=== PATIENT | male | born 1965 | race Caucasian/White ===

== ENCOUNTER → 2017-01-10 | Outpatient (CLI) | payer OTHER ==
[~2017-01-10] VITALS: Ht 185.4 cm; Wt 117.9 kg
[~2017-01-10] MED LIST: HYDROCODONE-APA1 TA1 PO; LYRICA 50 MG50 MG PO; LYRICA150 MG PO; MOBIC7.5 MG PO; NEURONTIN 300300 M1 PO; RAMIPRIL10 MG PO; SKELAXIN 800 M800 M1 PO; ZYRTEC10 M5 PO
--- NOTE | ~2017-01-10 | P ---
[facility] [place] [address] PROCEDURE REPORT Name: BRO BARTON [id number] Admission: 01/10/17 Attend Phys: Selwyn Singh DO Discharge: Date of : 65 Report #: [id number] THIS REPORT FOR: //name// CC: Darrel Sharma DATE OF SERVICE: 01/10/2017 DESCRIPTION OF PROCEDURE: Cervical epidural steroid injection under fluoroscopic guidance. This is the first procedure of the second series that the patient is undergoing. After obtaining written consent, the patient was taken back to the fluoroscopy suite and placed in a prone position with separate pillows under chest and forehead to decrease cervical lordosis. The skin overlying the cervical area was prepped and draped in an aseptic fashion. The C7-T1 vertebral interspace was identified by AP fluoroscopy. The skin and subcutaneous tissue overlying the target site of injection was anesthetized using 3 mL of 1% lidocaine. A 20-gauge 3-1/2-inch Tuohy needle was advanced under fluoroscopic guidance toward the epidural space using a midline approach. The epidural space was identified using a loss of resistance to air technique. After negative aspiration for heme or cerebrospinal fluid, a total of 1 mL of Omnipaque was injected. A cervical epidurogram was confirmed using AP and oblique fluoroscopy. After negative aspiration for heme or cerebrospinal fluid, 5 mL of a solution containing 2 mL 40 mg per mL, 80 mg total triamcinolone, 3 mL lidocaine 1% was injected in increments. Contrast spread was noted from posterior epidural space. The needle was then retracted approximately [facility] and the needle track was flushed with 1 mL of 1% lidocaine. There were no apparent new sensory deficits in the upper extremities present following the procedure. A sterile bandage was placed over the injection site. The heart rate, pulse oximetry and blood pressure were continuously monitored after the procedure. There were no apparent complications. The patient tolerated the procedure well and was carefully escorted in the recovery room in stable condition. After meeting discharge criteria, the patient was discharged home. By: [id number] Selwyn Singh DO /nt
--- NOTE | ~2017-01-10 | HPC ---
[facility] [address] [place] [address] PAIN MANAGEMENT CONSULTATION Name: BRO BARTON Josefina Room #: REG CLI [facility].#: [id number] Admission: 01/10/17 Attend Phys: Selwyn Singh DO Discharge: Date of : 65 Report #: [id number] THIS REPORT FOR: //name// CC: Darrel Sharma DATE OF SERVICE: 01/10/2017 REFERRING PHYSICIAN: Aric Mendoza MD. CHIEF COMPLAINT: Neck pain, right upper extremity pain. HISTORY OF PRESENT ILLNESS: As you know, the patient is a 51-year-old male, returning today in followup visit with recurrent neck pain, right upper extremity pain with paresthesias. The patient states he was doing very well when he had acute exacerbation of symptoms, denies injury or trauma. He is now placing pain score at 8/10, states his pain is sharp and sore in sensation, exacerbated with sitting, using his right arm, improves with medications, relaxation. He has returned today in followup visit to undergo cervical epidural injection under fluoroscopic guidance and discuss medical changes as well as possible surgical options. The patient again reports no injury or trauma that led to recurrence of symptoms. ALLERGIES: No known drug allergies. CURRENT MEDICATIONS: Lyrica 150 mg twice a day, meloxicam 7.5 mg once a day, Zyrtec 10 mg per day, ramipril 10 mg per day, Skelaxin 800 mg 3 times a day. SOCIAL HISTORY: The patient denies tobacco, IV or illicit drug use. Admits to approximately 4 alcoholic beverages per week. He is employed, working, not receiving workmen's compensation, unaccompanied today. IMAGING: No new imaging available. PHYSICAL EXAMINATION: VITAL SIGNS: Blood pressure 142/88, pulse 80, respiratory rate 16, unlabored. The patient is 98% on room air, height 6 feet 1 inches tall, weight 260 pounds, BMI calculated 34.3. GENERAL: Well-developed, well-nourished, well-hydrated exogenously obese 51-year-old male appearing stated age, placing current pain score 8/10. HEENT: Normocephalic, atraumatic. Pupils equal, round, reactive to light. EXTREMITIES: Show no clubbing, no cyanosis, no edema. MUSCULOSKELETAL: Upper extremity strength appears symmetrical 5/5, muscle bulk and tone equal and symmetrical in upper extremities. Spurling's test positive on the right, negative left. Biceps, brachioradialis and triceps reflexes equal [facility] [address] [place] [address] PAIN MANAGEMENT CONSULTATION Name: BRO BARTON Room #: REG CLI [facility]#: [id number] Admission: 01/10/17 Attend Phys: Selwyn Singh DO Discharge: Date of : 65 Report #: [id number] and symmetrical. ASSESSMENT: 1. Cervical radiculopathy. 2. Displacement of cervical intervertebral disk with radiculopathy. 3. Cervical spondylosis with radiculopathy. 4. Chronic intractable pain. PLAN: 1. The patient has returned today in followup visit indicating continued neck and right upper extremity pain. The patient indicates he was doing well, the medications were controlling his symptoms, but he had acute onset of symptoms that led to further review from his primary care physician. They started the patient on muscle relaxants, which have had a little or no effect. He was then subsequently referred back to our clinic to discuss treatment options. We discussed with the patient today treatment options would include physical therapy, stretching exercises and traction techniques. We could certainly look towards making changes in medication therapy, increasing his Lyrica dose from 150 mg twice a day to 225 mg twice a day. We discussed cervical epidural injections and surgical options. After reviewing risks and benefits of all proposed treatment options, the patient requested a cervical epidural injection and medication management changes. The patient was advised risks and benefits of a cervical epidural injection. These risks include but are not necessarily limited to bleeding, bruising, infection, worsening pain, no relief of pain, also risk of temporary or permanent muscle weakness, temporary or permanent nerve damage, possible paralysis and . The patient states he understood and wished to proceed. 2. The patient will increase his Lyrica from 150 mg twice a day to 225 mg twice a day. We have provided the patient with 75 mg tablet samples. He will allow this to his preexisting 150 mg b.i.d. dose. He will escalate the dose for the next 2 weeks, contact our clinic if this is effective and we will provide a full 225 mg prescription twice a day dose to his local pharmacy. He is to watch for side effects with the increase in medication including somnolence, decreased mental acuity, disorientation and confusion. If he notes any side effects, discontinue the increase in medication, contact our clinic. Again if the patient finds this effective, he is to contact our clinic, so that we can call a prescription into his local pharmacy. By: [id number] Selwyn Singh DO /nt
[2017-01-10 14:57] VITALS: BP 142/88
== END ==
LOC: PAIN 06:37
DX: M47.22 Other spondylosis with radiculopathy, cervical region (principal); M79.621 Pain in right upper arm; M50.13 Cervical disc disorder with radiculopathy, cervicothoracic region; I10 Essential (primary) hypertension; Z87.891 Personal history of nicotine dependence

== ENCOUNTER → 2017-04-04 | Outpatient (CLI) | payer OTHER ==
[~2017-04-04] VITALS: Ht 185.4 cm; Wt 118.4 kg
[~2017-04-04] MED LIST changes: +LYRICA225 MG PO
--- NOTE | ~2017-04-04 | HPC ---
[facility] [address] [place] [address] PAIN MANAGEMENT CONSULTATION Name: BRO BARTON Josefina Room #: REG CLI [facility].#: [id number] Admission: 04/04/17 Attend Phys: Selwyn Singh DO Discharge: Date of : 65 Report #: [id number] THIS REPORT FOR: //name// CC: Aric Sharma DATE OF SERVICE: 04/04/2017 DATE OF SERVICE: 04/04/2017 CHIEF COMPLAINT: Neck pain, right upper extremity pain and paresthesias. HISTORY OF PRESENT ILLNESS: As you know, the patient is a 52-year-old male, who returns today in followup visit with pain score of 8/10, states his pain begins in the right neck area, radiates down the right arm. He states the pain is sharp and tingling in sensation, exacerbated with movement of his right arm in sitting position. He places pain score at 8/10. He denies new injury or trauma that may have led to recurrence of his cervical radicular symptoms. He returns today in followup visit to undergo cervical epidural injection under fluoroscopic guidance. ALLERGIES: No known drug allergies. CURRENT MEDICATIONS: Lyrica 225 mg twice a day, cetirizine 10 mg per day, ramipril 10 mg per day. SOCIAL HISTORY: The patient denies tobacco, IV or illicit drug use. Admits to approximately 4 alcoholic beverages per week. He is employed, working, not receiving workmen's compensation, unaccompanied today. IMAGING: No new imaging available. PHYSICAL EXAMINATION: VITAL SIGNS: Blood pressure 135/89, pulse 79, respiratory rate 18, unlabored. The patient is 97% on room air, height 6 feet 1 inch tall, weight 261 pounds, BMI calculated 34.4. GENERAL: Well developed, well nourished, well hydrated 52-year-old male, appearing his stated age. Pain is rated at around 8/10. HEENT: Normocephalic, atraumatic. Pupils equal, round, reactive to light. Extraocular muscles are intact. Speech is fluent. EXTREMITIES: Show no clubbing, no cyanosis, no edema. MUSCULOSKELETAL: Upper extremity strength equal and symmetrical 5/5, intact to light touch from C1 through T1 dermatomes. Deep tendon reflexes equal and symmetrical at biceps, brachioradialis and triceps. Spurling's test positive on the right. [address] [address] PAIN MANAGEMENT CONSULTATION Name: BRO BARTON Josefina [id number] Admission: 04/04/17 Attend Phys: Selwyn Singh DO Discharge: Date of : 65 Report #: [id number] ASSESSMENT: 1. Symptomatic cervical radiculopathy. 2. Displacement of a cervical intervertebral disk with radiculopathy. 3. Cervical spondylosis with radiculopathy. 4. Chronic intractable pain. PLAN: 1. The patient returns today in followup visit requesting to undergo next in the series of cervical epidural injections under fluoroscopic guidance. The patient has done very well with previous cervical and hopeful to see similar improvement with these injections today. We have advised the patient the risks and benefits. These risks include but are not necessarily limited to bleeding, bruising, infection, worsening pain, no relief of pain, also risk of temporary or permanent muscle weakness, temporary or permanent nerve damage, possible paralysis and . The patient states understood and wished to proceed. 2. The patient has requested an opportunity to be evaluated by Neurosurgery. We will be referring the patient to [facility] to be evaluated for cervical radiculopathy. We have taken the liberty of assisting the patient to make an appointment. He will keep this appointment and return to discuss the options provided through their services. 3. No medication changes were made at today's visit, the patient was provided refill prescription as Lyrica 225 mg dose 1 tab p.o. b.i.d., #60, two refills. 4. The patient to return to our clinic once he has had an opportunity to discuss his case further with neurosurgery. DESCRIPTION OF PROCEDURE: Cervical epidural steroid injection under fluoroscopic guidance. This is the second procedure of the second series that the patient is undergoing. After obtaining written consent, the patient was taken back to the fluoroscopy suite and placed in a prone position with separate pillows under chest and forehead to decrease cervical lordosis. The skin overlying the cervical area was prepped and draped in an aseptic fashion. The C7-T1 vertebral interspace was identified by AP fluoroscopy. The skin and subcutaneous tissue overlying the target site of injection was anesthetized using 3 mL of 1% lidocaine. A 20-gauge 3-1/2 inches Tuohy needle was advanced under fluoroscopic guidance toward the epidural space using a midline approach. The epidural space was identified using a loss of resistance to air technique. After negative aspiration for heme or cerebrospinal fluid, a total of 1 mL of Omnipaque was injected. A cervical epidurogram was confirmed using AP and oblique fluoroscopy. After negative aspiration for heme or cerebrospinal fluid, 5 mL of a solution containing 2 mL 40 mg per mL, 80 mg total triamcinolone, [address] [address] PAIN MANAGEMENT CONSULTATION Name: BRO BARTON Room #: REG [facility]#: [id number] Admission: 04/04/17 Attend Phys: Selwyn Singh DO Discharge: Date of : 65 Report #: [id number] lidocaine 1% was injected in increments. Contrast spread was noted from posterior epidural space. The needle was then retracted approximately [facility] and the needle track was flushed with 1 mL of 1% lidocaine. There were no apparent new sensory deficits in the upper extremities present following the procedure. A sterile bandage was placed over the injection site. The heart rate, pulse oximetry and blood pressure were continuously monitored after the procedure. There were no apparent complications. The patient tolerated the procedure well and was carefully escorted in the recovery room in stable condition. After meeting discharge criteria, the patient was discharged home. <ELECTRONICALLY SIGNED> By: Selwyn Singh DO 04/11/17 1136 [id number] Selwyn Singh DO /nt
[2017-04-04 15:03] VITALS: BP 135/89
== END | disposition home or self-care (01) ==
LOC: PAIN 07:18
DX: M50.10 Cervical disc disorder with radiculopathy, unspecified cervical region (principal); G89.29 Other chronic pain; Z68.34 Body mass index [BMI] 34.0-34.9, adult; Z87.891 Personal history of nicotine dependence

== ENCOUNTER → 2017-11-08 | Outpatient (CLI) | payer OTHER ==
[~2017-11-08] VITALS: Ht 185.4 cm; Wt 114.6 kg
[~2017-11-08] MED LIST changes: +FLEXERIL PO; +IBUPROFEN 400400 M2 PO; +LYRICA 75 MG CA75 MG PO
--- NOTE | ~2017-11-08 | HPC ---
[facility] [place] [address] PAIN MANAGEMENT CONSULTATION Name: BRO BARTON Josefina [facility] [id number] Admission: 11/08/17 Attend Phys: Selwyn Singh DO Discharge: Date of : 65 Report #: [id number] THIS REPORT FOR: //name// CC: Aric Sharma DATE OF SERVICE: 11/08/2017 REFERRING PHYSICIAN: Aric Mendoza M.D. CHIEF COMPLAINT: Neck pain, right upper extremity pain with paresthesias. HISTORY OF PRESENT ILLNESS: As you know, the patient is a 52-year-old male who returns today in followup visit with reported pain score of around 3/10. He has undergone surgery and has noted improvement in symptoms. He is experiencing mainly now just upper back pain after his surgery and it is difficult for him to fall asleep. He has returned requesting refill on medications in hopes of providing analgesic benefit as he heals from recent surgery in the cervical region. Pain is reported 3/10, exacerbated with using his right arm in sitting as well as working on computer and improves with medications. ALLERGIES: No known drug allergies. CURRENT MEDICATIONS: Ibuprofen 400 mg every 4 hours, cyclobenzaprine 10 mg t.i.d., Lyrica 225 mg twice a day, cetirizine 10 mg per day and ramipril 10 mg per day. SOCIAL HISTORY: The patient denies tobacco, IV or illicit drug use. Admits to approximately 4 alcoholic beverages per week. He is employed, he is working, not receiving workmen's compensation, unaccompanied today. IMAGING DATA: No new imaging available. PHYSICAL EXAMINATION: VITAL SIGNS: Blood pressure 134/80, pulse 80 and respiratory rate 16 and unlabored. The patient is 98% on room air, height 6 feet 1 inch tall, weight 252.6 pounds and BMI calculated 33.3. GENERAL: Well-developed, well-nourished and well-hydrated 52-year-old male appearing stated age, placing current pain score around 3/10. HEENT: Head is normocephalic and atraumatic. Pupils equal, round and reactive to light. Extraocular muscles are intact. EXTREMITIES: Show no clubbing, no cyanosis and no edema. MUSCULOSKELETAL: Upper extremity strength is symmetrical 5/5, muscle bulk and tone equal and symmetrical in the upper extremities when comparing left upper extremity to right. Spurling's test is now negative. There are well-healed [facility] [address] [place] [address] PAIN MANAGEMENT CONSULTATION Name: BRO BARTON Room #: REG [facility]#: [id number] Admission: 11/08/17 Attend Phys: Selwyn Singh DO Discharge: Date of : 65 Report #: [id number] surgical scars. He is intact to light touch from C5 through T1 dermatomes. ASSESSMENT: 1. Cervical radiculopathy. 2. Postsurgical pain. 3. Myofascial pain. 4. Cervical spondylosis with radiculopathy. 5. Chronic intractable pain. PLAN: 1. The patient returns today in followup visit indicating his surgery was successful. He is now receiving good improvement in symptoms. He is now down to a level of 3/10 pain. The patient has returned requesting continuation of the Lyrica at current dosing as he is finding them beneficial but does ultimately wish to wean off these medications as well. The patient has been referred back to our clinic for the Flexeril, Lyrica dosing. He continues to follow up with his neurosurgery team for post-surgical evaluation. 2. The patient was provided prescription of Lyrica 225 mg dose 1 tab p.o. q. 12 hours, #60, release today one month worth of medication. 3. The patient was provided prescription of Lyrica 150 mg dose 1 tab p.o. b.i.d., #60 that is to release in 4 weeks to begin the weaning process off of Lyrica. 4. The patient was provided a prescription of Lyrica 75 mg dose 1 tab p.o. b.i.d., #60. This will be releasing in 8 weeks to continue the titration off of Lyrica. 5. The patient was provided prescription of Flexeril 100 mg dose 1 tab p.o. b.i.d., #60, two refills, 3 months' worth of medication. 6. We will see the patient back in followup visit in 3 months for continued weaning off of Lyrica and ultimately off Flexeril. <ELECTRONICALLY SIGNED> By: Selwyn Singh DO 11/22/17 [id number] [id number] Selwyn Singh DO /nt
[2017-11-08 10:07] VITALS: BP 134/80
== END ==
LOC: PAIN 06:57
DX: M47.22 Other spondylosis with radiculopathy, cervical region (principal); M79.1 Myalgia; G89.4 Chronic pain syndrome